=== PATIENT | female | born 2005 | race Caucasian/White ===

== ENCOUNTER 2024-07-07 02:23 | Emergency (ER) | payer BC ==
[2024-07-07] MEDS ORDERED: Ketorolac Tromethamine 30 MG (1 mL) VIAL ONE (03:24)
[2024-07-07] MEDS ORDERED: Dicyclomine 20 MG TAB ONE (03:25)
[2024-07-07 04:08] LABS: #Basophils 0.07 10x3/uL (0.0-0.2); %Eosinophils 1.6 % (0.0-10.0); %Monocytes 6.6 % (0.0-4.0); %Neutrophils 46.7 % (31.0-61.0); Hematocrit 42.6 % (36.0-47.0); Hemoglobin 14.1 g/dL (12.0-16.0); Mean Corpuscular HGB CONC 33.1 g/dL (32.0-36.0); Mean Corpuscular Hemoglobin 32.3 pg (25.0-35.0); Mean Corpuscular Volume 97.7 fL (78.0-98.0); Mean Platelet Volume 9.4 fL (7.4-10.4); Platelet Count 206 10x3/uL (130-400); RBC Distribution Width 12.3 % (11.5-14.5); Red Blood Cell (RBC) Count 4.36 mill/uL (4.00-5.20)
[2024-07-07 04:34] LABS: BHCG - Serum Negative (NEGATIVE); Pregs Control Background? CLEAR/WHITE (CLR/WHITE); Pregs Control Bar Appear? YES (CONTROL BAR)
[2024-07-07 04:46] LABS: ALT (SGPT) 25 U/L (8-55); AST (SGOT) 17 U/L (5-34); Albumin 3.8 g/dL (3.5-5.0); Alkaline Phosphatase 43 U/L (40-100); Anion Gap 12 mmol/L (10-20); BUN (Urea Nitrogen) 7 mg/dL (7.0-18.7); Bilirubin, Total 0.2 mg/dL (0.2-1.2); Calc. Creatinine Clearance 0 mL/min (70-130); Calcium 8.7 mg/dL (7.8-10.44); Carbon Dioxide 19 mmol/L (22-29); Chloride 113 mmol/L (98-107); Estimated GFR 123; Globulin 2.7 g/dL (2.4-3.5); Glucose 104 mg/dL (70-105); Lipase 43 U/L (8-78); Potassium 3.5 mmol/L (3.5-5.1); Protein, Total 6.5 g/dL (6.0-8.3); Sodium 140 mmol/L (136-145)
[2024-07-07 05:33] LABS: Bacteria/HPF None Seen HPF (None Seen); Bilirubin Negative (Negative); Blood, Urine Negative (Negative); CAUTI Indications for Culture Pelvic or flank pain; Clarity Clear (Clear); Glucose, Urine (Dipstick) Normal (Negative); Ketone, Urine Negative (Negative); Leukocyte Negative Leu/uL (Negative); Nitrite Negative (Negative); Protein, Urine (Dipstick) Negative (Neg-Trace); RBC/HPF 0-3 HPF (0-3); Specific Gravity, Urine 1.018 (1.002-1.036); Urobilinogen Normal mg/dL (Less than 2)
[2024-07-07 05:34] LABS: Urine Culture Reflex No No
[2024-07-07] MEDS ORDERED: Iopamidol 370 76% 100 ML VIAL ONE (07:00)
== END 2024-07-07 08:16 | disposition home or self-care (01) ==
LOC: ERS 02:23
DX: K52.9 Noninfective gastroenteritis and colitis, unspecified (principal)
CPT/HCPCS: 36415; 74177; 80053; 81001; 83690; 84703; 85025; 96374; J1885